=== PATIENT | female | born 1975 | race Caucasian/White ===

== ENCOUNTER 2022-01-21 09:07 | Day surgery (SDC) | payer BC ==
[2022-01-16 17:47] VITALS: BMI 25.2
[~2022-01-21 09:07] MED LIST: LACTATED RINGERS 1,000 ML IV SCH
[2022-01-21 10:45] VITALS: RESP 16; TEMP 98.5
[2022-01-21] MEDS ORDERED: PROPOFOL 10 MG/ML 20 ML VIAL IV ONE (11:25)
--- NOTE | 2022-01-21 11:45 | P.PCN ---
Date of Procedure: 01/21/22 Procedure(s) Performed: BRIEF HISTORY: Patient is a 46-year-old pleasant white female scheduled for an elective colonoscopy as a part of evaluation of change in bowel habits for the last several months duration. She is alternating diarrhea and constipation with occasional rectal urgency. No rectal bleeding. PROCEDURE PERFORMED: Colonoscopy with random biopsy. PREOPERATIVE DIAGNOSIS: Chronic intermittent diarrhea with rectal urgency. IV sedation per Anesthesia. PROCEDURE: After informed consent was obtained, the patient, was brought into the endoscopy unit. IV sedation was administered by Anesthesia under continuous monitoring. Digital rectal examination was normal. Initially the Olympus CF-160 flexible video colonoscope was then inserted in the rectum, gradually advanced into the cecum without any difficulty. Careful examination was performed as the scope was gradually being withdrawn. Ileocecal valve and the appendiceal orifice were visualized and appeared normal. Prep was excellent. Mucosa of the cecum, ascending colon, transverse colon, descending colon, sigmoid colon, and rectum appeared normal. Retroflexion was performed in the rectum and no lesions were seen. Random biopsies were done from ascending and descending colon to rule ou microscopic/Collagenous colitis. The patient tolerated the procedure well. IMPRESSION: Normal-appearing colon from rectum to cecum with no evidence of colorectal neoplasia . RECOMMENDATIONS: Findings of this examination were discussed with the patient as well as a family. She was advised to follow with the biopsy results. b she will bee seen in office in 2-3 weeks.
[2022-01-21] MEDS ORDERED: IV FLUID CONTINUATION 500 ML IV ONE (11:48)
[2022-01-21] MEDS ORDERED: LACTATED RINGERS 1,000 ML IV ONE (11:48)
[2022-01-21 12:10] VITALS: BP 119/64; PULSE 65
== END 2022-01-21 12:33 | disposition home or self-care (01) ==
LOC: ORWHC2ENDO 09:07
PROVIDERS: ATTEND Internal Medicine Gastroenterology
DX: K59.00 Constipation, unspecified (principal); K52.9 Noninfective gastroenteritis and colitis, unspecified; R15.2 Fecal urgency; F17.210 Nicotine dependence, cigarettes, uncomplicated; Z98.891 History of uterine scar from previous surgery; Z98.890 Other specified postprocedural states; Z88.2 Allergy status to sulfonamides; Z79.899 Other long term (current) drug therapy; Z79.1 Long term (current) use of non-steroidal anti-inflammatories (NSAID); Z88.8 Allergy status to other drugs, medicaments and biological substances
CPT/HCPCS: 81025; 88305; 45378; J2704

== ENCOUNTER → 2025-03-02 | Outpatient (CLI) | payer BC ==
[2025-03-02 13:07] VITALS: BP 136/84; PULSE 81; RESP 16; TEMP 98.5
--- NOTE | 2025-03-02 13:56 | P.GSCN ---
History of Present Illness Consult date: 03/02/25 Reason for Consult: Breast cysts Requesting physician: Gerri Spann History of present illness: Vi is a 49-year-old female seen in consultation for Dr. Bentleys bladder regarding left breast cyst. She had a bilateral screening mammogram on 02-07-2025. This did not reveal any lesions of concern in the right breast. In the left breast there was some questionable nodularity and a left breast diagnostic mammogram and ultrasound were performed on 02-21-25. Stains on this revealed on the ultrasound in the 7:00 region is stable 1.3 x 0.4 x 1 cm hypoechoic solid-appearing mass which had been biopsied in 2023. Biopsy in 2023 was considered benign concordant it revealed a benign cyst with ductal hyperplasia and pseudo angiomatous stromal hyperplasia. No other lesions of concern were identified and it was felt that a return to screening in 1 year was recommended. Radiographs personally interpreted. The patient complains of on the left breast Oct 26, 2024 in the 6:00 position near the aerola an abcess which was drained by her primary care DrDileep, she was treated with oral antibiotics and seen in ER after drained. Patient on February 19 went to cast associate and it was manipulated and turned into another abcess. It was the same spot. She was treated with Bactirm, back in the ER she is allergic to Bactrim. She had SOB, chest pain blood pressure alterations. They wanted to drain this, it drained on it's own. It is not palpable at this time. She has no fever or chills now. She had a core biopsy last year on the left side, no open surgery. She is not complaining of any nipple discharge or skin changes now. At her first mammogram 02-07-25 she had some cloudy/clear nipple discharge from the right side and at the second mammogram it was noted in the left breast. The remote past that she had high testosterone levels the shaves every other day. No recent breast trauma. caffeine: 2 cups/day nicotine: 1 PPD/for 8 years chocolate: occasional BCP: < 3 years hormones: none Family History: father: prostate cancer maternal grandfather: prostate cancer maternal great grandfather: stomach cancer maternal uncle: lymphoma Hormonal History: menarche: 15 M1, breast fed: yes; age at first : 22 ablation: Sep 2021; at 44 no periods since then, done for bleeding and irregular Surgical History: inguinal hernia bilateral bone grafting in mouth and oral implants Lasic eye surgery Medical History: IBS history of ovarian cyst Social History: nicotine: as above alcohol: several times a week; seltser drink drugs: none Review of Systems - Constitutional Reports sweats - EENT Eyes: denies blurred vision Ears: bilateral: tinnitus, deny: decreased hearing Ears, nose, mouth and throat: Denies dysphagia - Breasts bilateral: as per HPI - Cardiovascular Reports chest pain, Reports shortness of breath - Respiratory Reports as per HPI - Gastrointestinal Gastrointestinal Comment(s): IBS Reports as per HPI - Genitourinary Genitourinary: Denies dysuria, Denies hematuria Menstruation: Reports as per HPI - Musculoskeletal Reports as per HPI - Integumentary Denies rash, Denies unusual bruising - Neurological Denies headaches, Denies syncope - Psychiatric Reports as per HPI - Endocrine Reports fatigue - Hematologic/Lymphatic Reports easy bleeding, Denies easy bruising - Allergic/Immunologic Reports seasonal allergies Past Medical History Past Medical History: Asthma, Musculoskeletal Disorder Additional Past Medical History / Comment(s): Allergy induced asthma. Urgency for bowel movement, low grade fever, Rt side abd pain, occ watery stool. Arthritis Rt shoulder, toes. Recent autoimmune blood testing. Varicose veins, SF phlebitis LFA recent. History of Any Multi-Drug Resistant Organisms: None Reported Past Surgical History: Hernia Repair, Uterine Ablation Additional Past Surgical History / Comment(s): C-S. Inguinal hernia x2. Lasik eye surg. Bone graft upper mouth. Past Anesthesia/Blood Transfusion Reactions: No Reported Reaction Past Psychological History: No Psychological Hx Reported Smoking Status: Current every day smoker Past Alcohol Use History: Occasional Additional Past Alcohol Use History / Comment(s): Smoking since 2015, 1/2 - 1 ppd Past Drug Use History: None Reported Additional Drug Use History / Comment(s): CBD gummies, rare use in past - Past Family History Father Family Medical History: Cancer Additional Family Medical History / Comment(s): prostate cancer Medications and Allergies Home Medications Medication Instructions Recorded Confirmed Type Albuterol Inhaler [Ventolin Hfa 1 - 2 puff INHALATION RT-QID PRN 01/16/22 03/02/25 History Inhaler] Cetirizine HCl [Zyrtec] 10 mg PO DAILY PRN 01/16/22 03/02/25 History Ibuprofen [Motrin Ib] 200 - 800 mg PO Q8H PRN 01/16/22 03/02/25 History Wheat Dextrin [Benefiber] 1 packet PO DAILY 01/16/22 03/02/25 History Allergies Allergy/AdvReac Type Severity Reaction Status Date / Time naproxen AdvReac Abdominal Verified 03/02/25 13:04 Pain sulfamethoxazole AdvReac severe Verified 03/02/25 13:04 [From Bactrim] hand, joint pain trimethoprim [From Bactrim] AdvReac severe Verified 03/02/25 13:04 hand, joint pain Surgical - Exam Vital Signs Temp Pulse Resp BP Pulse Ox 98.5 F 81 16 136/84 99 03/02/25 13:05 03/02/25 13:05 03/02/25 13:05 03/02/25 13:05 03/02/25 13:05 - General moderate distress - Eyes normal ocular movement - ENT no hearing loss - Neck trachea midline - Respiratory normal respiratory effort, clear to auscultation - Cardiovascular Rhythm: regular Heart Sounds: normal: S1, S2 - Abdomen Abdomen: soft, non tender, no guarding, no rigid, no rebound - Integumentary normal turgor; hirstuism - Neurologic no disoriented, no combative - Musculoskeletal normal gait, normal posture - Psychiatric oriented to time, oriented to person, oriented to place, speech is normal, memory intact Breast Exam: BRA: 38DD Inspection: Bilateral grade 2 ptosis Palpation: Right breast: Multi positional exam no dominant masses or nodules of concern fibrocystic changes Right axilla: No adenopathy of concern Left breast: Multi positional exam no dominant masses or nodules of concern, at approximately 3 cm inferior to the 6:00 nipple areolar complex there is what appears to be an excoriation on the skin which is where she had drainage of an abscess, there is no residual at this time Left axilla: No adenopathy of concern Results Bilateral mammogram and left breast mammogram and ultrasound from January 2025/personally interpreted Assessment and Plan Assessment: Impression: Recurrent left breast abscess Bilateral breast mammogram and left breast diagnostic mammogram and ultrasound completed on 02-07-25 and felt to be BI-RADS 2 repeat bilateral mammogram in 1 year Prior left breast ultrasound-guided core biopsy benign concordant ? hormonal imbalance/ history of ovarian cyst Nicotine dependence Plan: appointment with endocrine/hormonal imbalance/hirtsuism encouraged to stop smoking encouraged to stop caffiene intake appointment with retail management trainee regarding/? polycystic ovarina diseases 3-D bilateral mammogram in January 2026 follow up 6 months or recurrent abscess CC: Dr. Rocha (Time spent > 45 minutes, this was in reviewing studies, examining patient, and discussion regarding possible treatment options)
== END ==
LOC: WWCWWP 12:48
PROVIDERS: ATTEND Surgery
DX: N61.1 Abscess of the breast and nipple (principal); F17.210 Nicotine dependence, cigarettes, uncomplicated; Z88.2 Allergy status to sulfonamides; Z88.6 Allergy status to analgesic agent